=== PATIENT | female | born 1975 | race Two or more races ===

== ENCOUNTER 2019-05-05 18:55 | Emergency (ER) | payer MEDICAID ==
[~2019-05-05] VITALS: Ht 152.4 cm; Wt 120.2 kg
--- NOTE | 2019-05-05 19:13 | NUR ---
Report given to ARETHA Valenzuela
[2019-05-05 19:25] LABS: *BILIRUBIN,URIN NEGATIVE (NEGATIVE); *BLOOD, URINE 2+ (NEGATIVE); *CLARITY,URINE SLIGHTLY CLOUDY (CLEAR); *COLOR,URINE YELLOW (YELLOW); *KETONES,URINE NEGATIVE (NEGATIVE); *UROBILINOGEN,URINE 0.2 E.U./dl (NORMAL); LEUKOCYTE ESTERASE ,URINE 3+ (NEGATIVE); NITRITE, URINE NEGATIVE (NEGATIVE); UGLUCOSE NEGATIVE (NEGATIVE)
[2019-05-05 19:27] LABS: *URINE HCG, QUAL NEGATIVE (NEGATIVE)
[2019-05-05 19:34] LABS: BACTERIA,URINE MODERATE /HPF (NONE SEEN); RBC,URINE 50-80 /HPF (0-3); SQUAMOUS EPITHELIAL CELL,UR MODERATE /HPF (NONE SEEN); WBC,URINE TNTC /HPF (0-3)
[2019-05-05 19:35] LABS: URINE AMORPHOUS URATE MODERATE /HPF
[2019-05-05] MEDS ORDERED: PHENAZOPYRIDINE HCL 100 MG TABLET ONE (19:55)
[2019-05-05] MEDS ORDERED: PHENAZOPYRIDINE HCL 100 MG TABLET PO ONE (20:00)
--- NOTE | 2019-05-05 20:03 | NUR ---
Patient discharged to home in stable conditon. Written and verbal after care instructions given. Patient verbalizes understanding of instructions.
== END 2019-05-05 20:04 | disposition home or self-care (01) ==
LOC: ER 18:55
DX: N39.0 Urinary tract infection, site not specified (principal)
CPT/HCPCS: 84703; 87077; 87086; A4663